=== PATIENT | male | born 1935 | race Caucasian/White ===

== ENCOUNTER → 2017-09-04 | Outpatient (CLI) | payer OTHER, MEDICARE ==
--- NOTE | 2017-09-05 14:23 | MRI ---
MRI SPINE THORACIC WITHOUT CONTRAST CLINICAL HISTORY: 82-year-old male with pain and stiffness in the mid back. COMPARISON: None. TECHNIQUE: Multiplanar, multisequence MRI images of the thoracic spine were obtained prior to and fo llowing the uneventful intravenous administration of contrast. FINDINGS: There is a normal thoracic kyphosis. Alignment is maintained. Vertebral body and intervertebral disc space height are normal. Vertebral marrow and intervertebral disc signal are normal. Cord signal is n ormal. There is no evidence of significant neural foraminal stenosis or canal compromise. IMPRESSION: Negative MR of the thoracic spine. Reported By:
== END ==
LOC: RAD 13:43
PROVIDERS: ATTEND Neurological Surgery
DX: M54.14 Radiculopathy, thoracic region (principal); M54.6 Pain in thoracic spine
CPT/HCPCS: 72146